=== PATIENT | female | born 1985 | race Caucasian/White ===

== ENCOUNTER 2018-09-25 18:20 | Inpatient (IN) | payer MEDICAID ==
[~2018-09-25] VITALS: Ht 177.8 cm; Wt 79.5 kg
[2018-09-25] VITALS (9 sets, daily range): BP systolic 119–151; BP diastolic 77–93; BMI 23.7
[2018-09-25 19:10] LABS: BASOPHILS 0.2 % (0-2); EOSINOPHILS 0.2 % (0-7); HEMATOCRIT 50.9 % (36.0-48.0); HEMOGLOBIN 17.8 g/dL (12-16); MCH 31.6 pg (26.0-34.0); MCV 90.2 fL (80.0-100.0); MEAN PLATELET VOLUME 11.1 fL (7.4-10.4); MONOCYTES 6.9 % (2-11); NEUTROPHILS 62.7 % (40-80); PLATELET COUNT 388 10x3/uL (130-400); RBC 5.64 10x6/uL (4.00-5.40); RDW 12.7 % (11.5-14.5); WBC 12.7 10x3/uL (4.8-10.8)
[2018-09-25 19:20] LABS: KETONE - SERUM MODERATE mg/dL (NEGATIVE)
[2018-09-25 19:28] LABS: ALBUMIN 3.9 g/dL (3.4-5.0); ALKALINE PHOSPHATASE 102 U/L (46-116); ALT (SGPT) 16 U/L (10-68); BILIRUBIN - TOTAL 0.48 mg/dL (0.2-1.3); CALC OSMOLALITY 276 mosm/kg (275-300); CALCIUM 8.5 mg/dL (8.5-10.1); CHLORIDE - SERUM 97 mmol/L (98-107); GLUCOSE 370 mg/dL (74-106); POTASSIUM - SERUM 4.5 mmol/L (3.5-5.1); PROTEIN - SERUM 8.2 g/dL (6.4-8.2); SODIUM 129 mmol/L (136-145); UREA NITROGEN 21 mg/dL (7-18); eGFR NON AFRICAN AMERICAN 67 mL/min (90-120)
[2018-09-25 19:31] LABS: CARBON DIOXIDE 3.5 mmol/L (21.0-32.0)
--- NOTE | 2018-09-25 19:35 | NUR ---
INSULIN DRIP STARTED AT 5UNITS PER HOUR PER ERP VERBAL ORDER.
[2018-09-25 19:36] LABS: MAGNESIUM - SERUM 1.9 mg/dL (1.8-2.4); PHOSPHOROUS 3.7 mg/dL (2.5-4.9)
--- NOTE | 2018-09-25 20:35 | NUR ---
FSBS - 286 ERP INFORMED
[2018-09-25 21:22] LABS: KETONE - SERUM SMALL mg/dL (NEGATIVE)
[2018-09-25 21:24] LABS: HCG SERUM NEGATIVE (NEGATIVE)
--- NOTE | 2018-09-25 21:28 | NUR ---
PT RECEIVED FROM ER. PT HAS GENERALIZED BODY RASH STATES IT IS ITCHY. PT POOR HISTORIAN BUT ANSWERS ALL QUESTIONS APPROPRIATELY. PT STATES RASH STARTED TODAY BUT HAS BEEN SICK FOR LAST 4 DAYS. [place] NO MEDSX4 DAYS. 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 ICU MONITORS IN PLACE ALARMS SET AND VERIFIED. VSS WILL CONTINUE TO MONTIOR.
--- NOTE | 2018-09-25 22:00 | NUR ---
2138 PT FSBS CHECKED. GREATER THAN 200 BLOOD SUGAR DROP FROM LAST RECHECK. PROTOCOL CALLS FOR INCREASE. NO INCREASE DUE TO DROP. Q30 MINUTE CHECK. SEE FLOW SHEET. 2200 FSBS 177. GREATER THAN 200 BLOOD SUGAR DROP FROM INITIATION. NO INCREASE WILL RECHECK IN Q1HR. DUE TO LARGE DROP. NO INCREASE. SEE FLOW SHEET.
--- NOTE | 2018-09-25 23:00 | NUR ---
REASSESSMENT DONE SEE FLOW SHEET VSS. RASH INCREASING IN GROWTH. DR RODRIGUEZ PAGED.
[2018-09-25 23:05] LABS: CALC OSMOLALITY 272 mosm/kg (275-300); CALCIUM 7.4 mg/dL (8.5-10.1); CARBON DIOXIDE 10.1 mmol/L (21.0-32.0); CHLORIDE - SERUM 106 mmol/L (98-107); CREATININE - SERUM 0.8 mg/dL (0.6-1.3); SODIUM 134 mmol/L (136-145); UREA NITROGEN 17 mg/dL (7-18); eGFR NON AFRICAN AMERICAN 87 mL/min (90-120)
[2018-09-25 23:09] LABS: GLUCOSE 156 mg/dL (74-106)
[2018-09-26] VITALS (24 sets, daily range): BP systolic 110–140; BP diastolic 68–83
[2018-09-26 04:18] LABS: BASOPHILS 0.1 % (0-2); EOSINOPHILS 0.4 % (0-7); HEMATOCRIT 44.6 % (36.0-48.0); HEMOGLOBIN 15.9 g/dL (12-16); IMMATURE GRANULOCYTES 0.5 % (0-5); LYMPHOCYTES 31.9 % (15-50); MCH 31.5 pg (26.0-34.0); MCHC 35.7 g/dL (31.0-37.0); MCV 88.3 fL (80.0-100.0); MEAN PLATELET VOLUME 10.5 fL (7.4-10.4); MONOCYTES 5.1 % (2-11); PLATELET COUNT 308 10x3/uL (130-400); RBC 5.05 10x6/uL (4.00-5.40); RDW 12.8 % (11.5-14.5); WBC 7.9 10x3/uL (4.8-10.8)
[2018-09-26 04:34] LABS: ALBUMIN 3.1 g/dL (3.4-5.0); ALKALINE PHOSPHATASE 71 U/L (46-116); ALT (SGPT) 13 U/L (10-68); BILIRUBIN - TOTAL 0.42 mg/dL (0.2-1.3); CALCIUM 7.7 mg/dL (8.5-10.1); CARBON DIOXIDE 12.4 mmol/L (21.0-32.0); CHLORIDE - SERUM 108 mmol/L (98-107); CREATININE - SERUM 0.8 mg/dL (0.6-1.3); MAGNESIUM - SERUM 1.5 mg/dL (1.8-2.4); PROTEIN - SERUM 6.3 g/dL (6.4-8.2); SODIUM 136 mmol/L (136-145); UREA NITROGEN 17 mg/dL (7-18); eGFR NON AFRICAN AMERICAN 87 mL/min (90-120)
[2018-09-26 04:35] LABS: CALC OSMOLALITY 273 mosm/kg (275-300); GLUCOSE 94 mg/dL (74-106); PHOSPHOROUS 1.6 mg/dL (2.5-4.9)
--- NOTE | 2018-09-26 05:00 | NUR ---
0100 WATER PROVIDED PER REQUEST. VSS. 0300 REASSESSMENT DONE SEE FLOW SHEET. VSS. 0500 DECREASE IN FSBS NOTED. FLUID CHANGED PER ORDER. WILL CONTINUE TO MONITOR. VSS.
--- NOTE | 2018-09-26 08:04 | NUR ---
PT AWAKE AND FOLLOWS COMMAND AND ANSWERS QUESTIONS APPROPRIATELY. DKA INSULIN PROTOCOL USED AND ADJUSTED RATE AND FLUIDS ORDERED BY PROTOCOL. BG 172 AT PRESENT. INSULIN GTT INFUSING PER PROTOCOL. SEE FLOWSHEET ON CHART.
[2018-09-26 08:58] LABS: CALCIUM 7.6 mg/dL (8.5-10.1); CARBON DIOXIDE 13.7 mmol/L (21.0-32.0); CHLORIDE - SERUM 108 mmol/L (98-107); CREATININE - SERUM 0.7 mg/dL (0.6-1.3); SODIUM 134 mmol/L (136-145); UREA NITROGEN 16 mg/dL (7-18); eGFR NON AFRICAN AMERICAN > 90 mL/min (90-120)
[2018-09-26 09:06] LABS: CALC OSMOLALITY 273 mosm/kg (275-300); GLUCOSE 196 mg/dL (74-106); POTASSIUM - SERUM 5.3 mmol/L (3.5-5.1)
--- NOTE | 2018-09-26 11:23 | NUR ---
IV INSULIN GTT FLOWSHEET REVIEWED. ADVISED TO CORRECT MULTIPLIER DUE TO PREVIOUS ERROR. SEE FLOWSHEET.
[2018-09-26 13:13] LABS: CALCIUM 7.9 mg/dL (8.5-10.1); CHLORIDE - SERUM 107 mmol/L (98-107); CREATININE - SERUM 0.7 mg/dL (0.6-1.3); MAGNESIUM - SERUM 1.8 mg/dL (1.8-2.4); SODIUM 136 mmol/L (136-145); UREA NITROGEN 13 mg/dL (7-18); eGFR NON AFRICAN AMERICAN > 90 mL/min (90-120)
[2018-09-26 13:20] LABS: CALC OSMOLALITY 272 mosm/kg (275-300); CARBON DIOXIDE 17.4 mmol/L (21.0-32.0); GLUCOSE 111 mg/dL (74-106); POTASSIUM - SERUM 3.3 mmol/L (3.5-5.1)
--- NOTE | 2018-09-26 13:56 | NUR ---
DR ACOSTA HERE. ELECTROLYTE PROTOCOL USED FOR K+ REPLACEMENT.
--- NOTE | 2018-09-26 13:57 | NUR ---
ASSISTED PT TO BATH ROOM. PT VOIDS 1200CC NERISSA URINE.
[2018-09-26 14:24] LABS: UDS - AMPHET NEGATIVE QUAL (NEGATIVE); UDS - BARB NEGATIVE QUAL (NEGATIVE); UDS - BENZO NEGATIVE QUAL (NEGATIVE); UDS - COCAINE NEGATIVE QUAL (NEGATIVE); UDS - OPIATE NEGATIVE QUAL (NEGATIVE); UDS - PCP NEGATIVE QUAL (NEGATIVE); UDS - THC NEGATIVE QUAL (NEGATIVE)
[2018-09-26 14:38] LABS: APPEARANCE CLEAR (CLEAR); BILIRUBIN NEGATIVE (NEGATIVE); COLOR YELLOW (YELLOW); GLUCOSE 1000 mg/dL (NEGATIVE); KETONE LARGE mg/dL (NEGATIVE); NITRITE NEGATIVE (NEGATIVE); PROTEIN TRACE mg/dL (NEGATIVE); SPECIFIC GRAVITY 1.025 (1.005-1.020); UROBILINOGEN NORMAL (NORMAL)
[2018-09-26 14:39] LABS: RED CELLS - URINE 0-5 /hpf (0-5); WHITE CELLS - URINE 0-5 /hpf (0-5)
[2018-09-26 14:40] LABS: BACTERIA FEW /hpf (NONE SEEN); GRANULAR CAST 0-5 /lpf (NONE SEEN)
[2018-09-26 16:36] LABS: CALC OSMOLALITY 268 mosm/kg (275-300); CALCIUM 7.8 mg/dL (8.5-10.1); CHLORIDE - SERUM 107 mmol/L (98-107); CREATININE - SERUM 0.6 mg/dL (0.6-1.3); GLUCOSE 116 mg/dL (74-106); MAGNESIUM - SERUM 1.8 mg/dL (1.8-2.4); POTASSIUM - SERUM 3.5 mmol/L (3.5-5.1); SODIUM 134 mmol/L (136-145); UREA NITROGEN 12 mg/dL (7-18); eGFR NON AFRICAN AMERICAN > 90 mL/min (90-120)
--- NOTE | 2018-09-26 17:04 | NUR ---
PT TAKING IN CL DIET WITH OUT DIFFICULTY.
--- NOTE | 2018-09-26 19:16 | NUR ---
BEDSIDE SHIFT REPORT GIVEN BY DEPARTING RN. PT LAYING IN BED ASLEEP. AAOX4. PERRLA. DENIES ANY PAIN OR NEEDS AT THIS TIME. R AND L AC PIV PATENT. VSS. TOLERATING CL LIQUID DIET. DIET COKE GIVEN PER PT REQUEST. ASSESSMENT COMPLETE. SAFETY MEASURES IN PLACE. CBIR.
--- NOTE | 2018-09-26 21:10 | NUR ---
VSS. BG CHECKED. SEE FS IN CHART
--- NOTE | 2018-09-26 23:00 | NUR ---
REASSESSMENT COMPLETE. NO CHANGES NOTED IN PT CONDITION. VSS. NO SS OF DISTRESS. SAFETY MEASURES IN PLACE. CBIR.
[2018-09-27] VITALS (18 sets, daily range): BP systolic 104–123; BP diastolic 60–77; Ht 177.8 cm; Wt 79.5 kg
[2018-09-27 00:41] LABS: CALC OSMOLALITY 264 mosm/kg (275-300); CARBON DIOXIDE 19.1 mmol/L (21.0-32.0); CHLORIDE - SERUM 107 mmol/L (98-107); CREATININE - SERUM 0.5 mg/dL (0.6-1.3); GLUCOSE 84 mg/dL (74-106); MAGNESIUM - SERUM 1.6 mg/dL (1.8-2.4); POTASSIUM - SERUM 3.9 mmol/L (3.5-5.1); SODIUM 134 mmol/L (136-145); UREA NITROGEN 7 mg/dL (7-18); eGFR NON AFRICAN AMERICAN > 90 mL/min (90-120)
--- NOTE | 2018-09-27 01:12 | NUR ---
REQUESTED SNACK. CHICKEN BROTH PROVIDED. TOLERATED WELL.
--- NOTE | 2018-09-27 03:06 | NUR ---
REASSESSMENT COMPLETE. NO NEW CHANGES IN PT CONDITION. REPOSITIONS SELF WITH EASE. NO SS OF DISTRESS. REMAINS AFEBRILE. SAFETY MEASURES IN PLACE. CBIR.
--- NOTE | 2018-09-27 05:42 | NUR ---
RESTING COMFORTABLY. NO SS OF DISTRESS. VSS. REPOSITIONS SELF. CHG BATH SET UP IN BATHROOM WITH NEW GOWN. CLEAN LINENS READY. PT REFUSES BATH AT THIS TIME, BUT WILL BATHE HERSELF WHEN SHE GOES TO THE BATHROOM NEXT. SAFETY MEASURES IN PLACE. CBIR.
[2018-09-27 06:46] LABS: ALBUMIN 2.4 g/dL (3.4-5.0); ALKALINE PHOSPHATASE 54 U/L (46-116); ALT (SGPT) 12 U/L (10-68); BILIRUBIN - TOTAL 0.26 mg/dL (0.2-1.3); CALC OSMOLALITY 271 mosm/kg (275-300); CALCIUM 7.8 mg/dL (8.5-10.1); CARBON DIOXIDE 19.1 mmol/L (21.0-32.0); CHLORIDE - SERUM 109 mmol/L (98-107); CREATININE - SERUM 0.4 mg/dL (0.6-1.3); GLUCOSE 101 mg/dL (74-106); MAGNESIUM - SERUM 1.6 mg/dL (1.8-2.4); SODIUM 137 mmol/L (136-145); UREA NITROGEN 6 mg/dL (7-18); eGFR NON AFRICAN AMERICAN > 90 mL/min (90-120)
[2018-09-27 06:52] LABS: POTASSIUM - SERUM 3.3 mmol/L (3.5-5.1)
[2018-09-27 07:00] LABS: BASOPHILS 0.4 % (0-2); EOSINOPHILS 3.3 % (0-7); HEMATOCRIT 36.5 % (36.0-48.0); HEMOGLOBIN 12.9 g/dL (12-16); IMMATURE GRANULOCYTES 0.2 % (0-5); LYMPHOCYTES 64.8 % (15-50); MCH 30.8 pg (26.0-34.0); MCHC 35.3 g/dL (31.0-37.0); MCV 87.1 fL (80.0-100.0); MEAN PLATELET VOLUME 10.5 fL (7.4-10.4); MONOCYTES 7.3 % (2-11); RBC 4.19 10x6/uL (4.00-5.40); RDW 13.1 % (11.5-14.5)
[2018-09-27 07:05] LABS: PLATELET COUNT 190 10x3/uL (130-400); WBC 4.6 10x3/uL (4.8-10.8)
--- NOTE | 2018-09-27 09:20 | NUR ---
0700 REPORT RECIEVED, PATIENT IN BED AAOX4, VITALS STABLE. RIGHT AC SL, LEFT AC INFUSING. SEE IV FLOW SHEET. SCD'S ON. 0900 PT SITTING UP IN BED, BREAKFAST TRAY IN ROOM. VITALS STABLE. PATIENT AMBULATED TO BATHROOM WITH SUPERVISION, GAVE SELF CHG BATH.
--- NOTE | 2018-09-27 09:59 | NUR ---
CALLED DR ACOSTA TO CLARIFY ORDERS AND UPDATE ON ANION GAP, ORDERS TO CHANGE TO NS, RESTART LEVIMIR AND S/S INSULIN
--- NOTE | 2018-09-27 12:47 | MORECARE ---
CASE MANAGEMENT DISCHARGE SUMMARY PATIENT: ASTER KAUR UNIT: [id number] ADM DATE: 09/25/18 AGE: 33 : [birth year] SEX: F ROOM/BED: [facility] AUTHOR: KIRSTEN NUR PHYSICIAN: REFERRING PHYSICIAN: JOSE ARMANDO CURTIS MD DATE OF SERVICE: 09/27/18 Discharge Plan Patient Name: ASTER KAUR [facility] [facility] 1985 Planned Disposition: Home Anticipated Discharge Date: Discharge Date: Expected LOS: Initial Reviewer: [email or web address] Initial Review Date: 09/27/2018 Generated: 09/27/18 1:46 pm DCPIA - Discharge Planning Initial Assessment Updated by [email or web address]: Julia Goldstein on 09/27/18 12:40 pm * Is the patient Alert and Oriented? Yes * How many steps to enter\exit or inside your home? 1-2 * PCP [facility] * Pharmacy [facility] * Preadmission Environment Home Alone * ADLs Independent * Equipment None * List name and contact numbers for known caregivers / representatives who currently or will assist patient after discharge: HEAVEN WADE - MOTHER- [phone] * Verbal permission to speak to the caregivers and representatives has been obtained from the patient. N/A * Community resources currently utilized None * Additional services required to return to the preadmission environment? No * Can the patient safely return to the preadmission environment? Yes * Has this patient been hospitalized within the prior 30 days at any hospital? No Patient Name: ASTER KAUR Page [id number] at 1247 All edits/amendments must be made on the electronic document DICTATION DATE: 09/27/18 1246 ANIMAL HUSBANDRY TEACHER: KAROLINA 09/27/18 1246 RPT#: [id number] DC DATE: STATUS: ADM IN [facility] [address] [place] [address] END OF REPORT
--- NOTE | 2018-09-27 13:03 | MORECARE ---
CASE MANAGEMENT DISCHARGE SUMMARY PATIENT: ASTER KAUR UNIT: [id number] ADM DATE: 09/25/18 AGE: 33 : 83 SEX: F ROOM/BED: [facility] AUTHOR: LIUDMILADOC PHYSICIAN: REFERRING PHYSICIAN: JOSE ARMANDO CURTIS MD DATE OF SERVICE: 09/27/18 Discharge Plan Patient Name: ASTER KAUR Facility: [facility]:[place] : 1985 Planned Disposition: Home Anticipated Discharge Date: Discharge Date: Expected LOS: Initial Reviewer: [email or web address] Initial Review Date: 09/27/2018 Generated: 09/27/18 2:03 pm Comments DCP- Discharge Planning Updated by [id number]: Julia Goldstein on 09/27/18 11:[address] Patient Name: ASTER KAUR Admission Status: ER Accout number: [id number] Admission Date: 09-25-2018 : 1985 Admission Diagnosis: Attending: JOSE ARMANDO CURTIS Current LOS: 2 Anticipated DC Date: Planned Disposition: Home Primary Insurance: [employer] PRVT OPTIONS MICHELLE Discharge Planning Comments: CM met with patient at bedside after explaining CM role and obtaining verbal consent. Patient lives at home alone and plans to return there upon discharge. Patient feels this would be a safe discharge. CM discussed availability / needs of home health and medical equipment. Patient states that she doesn't have a glucometer at home and is unable to check blood sugars. CM explained that [facility] has a glucometer for under 20 dollars and strips less than 20 dollars. Patient stated that she does have means to get one for this morrison. Patient states that she has been getting her insulin and taking it. Patient denies any discharge needs at this time. Patient states she will have her family drive her home upon discharge. CM will continue to follow and assist as needed with discharge planning / needs. Electrical Technology Instructor: Julia Goldstein DCPIA - Discharge Planning Initial Assessment Updated by [email or web address]: Julia Goldstein on 09/27/18 12:40 pm * Is the patient Alert and Oriented? Yes * How many steps to enter\exit or inside your home? 1-2 * PCP [facility] * Pharmacy [facility] * Preadmission Environment Home Alone * ADLs Independent * Equipment None * List name and contact numbers for known caregivers / representatives who currently or will assist patient after discharge: HEAVEN WADE - MOTHER- [phone] * Verbal permission to speak to the caregivers and representatives has been obtained from the patient. N/A * Community resources currently utilized None * Additional services required to return to the preadmission environment? No * Can the patient safely return to the preadmission environment? Yes * Has this patient been hospitalized within the prior 30 days at any hospital? No Last DP export: 09/27/18 11:47 a Patient Name: ASTER KAUR Page 11246 at 1303 All edits/amendments must be made on the electronic document DICTATION DATE: 09/27/18 1302 OB GYN PHYSICIAN ASSISTANT: KAROLINA 09/27/18 1302 RPT#: [id number] DC DATE: STATUS: ADM IN [facility] [address] [place] [address] END OF REPORT
[2018-09-27 13:04] LABS: CALC OSMOLALITY 272 mosm/kg (275-300); CALCIUM 7.6 mg/dL (8.5-10.1); CARBON DIOXIDE 13.9 mmol/L (21.0-32.0); CHLORIDE - SERUM 108 mmol/L (98-107); CREATININE - SERUM 0.4 mg/dL (0.6-1.3); GLUCOSE 170 mg/dL (74-106); MAGNESIUM - SERUM 1.5 mg/dL (1.8-2.4); SODIUM 136 mmol/L (136-145); UREA NITROGEN 5 mg/dL (7-18); eGFR NON AFRICAN AMERICAN > 90 mL/min (90-120)
--- NOTE | 2018-09-27 13:05 | NUR ---
DIETITION SPOKE WITH PATIENT FOR DIABETIC TEACHING
--- NOTE | 2018-09-27 16:46 | NUR ---
REPORT CALLED, WILL TRANSFER TO ROOM 1212 BY WHEELCHAIR, MOTHER NOTIFIED AND WILL MEET US DOWN THERE
--- NOTE | 2018-09-27 16:50 | NUR ---
1646-RECEIVED REPORT FROM GWEN FROM [facility].
--- NOTE | 2018-09-27 17:08 | NUR ---
1655-RECEIVED VIA WHEELCHAIR TO ROOM. POC GLUCOSE IS 198. COVERED WITH HUMULIN 4U TO RIGHT ARM. LEFT ARM WITH NS INFUSING AT 75 CC/HR, RIGHT AC PIV WITH SALINE LOCK. BILATERAL SCD'S ON AND IN USE. CALL LIGHT GIVEN TO PATIENT.
--- NOTE | 2018-09-27 17:37 | NUR ---
EATING SUPPER TRAY, MOTHER AT BEDSIDE.
--- NOTE | 2018-09-27 19:15 | NUR ---
PATIENT RESTING IN BED WITH NO S/S OF DISTRESS. BROUGHT PATIENT A DRINK PER HER REQUEST. PATIENT DENIES OTHER NEEDS AT THIS TIME. BED IN LOWEST POSITION AND CALL LIGHT WITHIN REACH. ENCOURAGED THE PATIENT TO CALL IF SHE HAS NEEDS. WILL CONTINUE TO MONITOR.
[2018-09-27 19:25] LABS: CALC OSMOLALITY 277 mosm/kg (275-300); CALCIUM 7.7 mg/dL (8.5-10.1); CARBON DIOXIDE 17.7 mmol/L (21.0-32.0); CHLORIDE - SERUM 106 mmol/L (98-107); CREATININE - SERUM 0.4 mg/dL (0.6-1.3); GLUCOSE 254 mg/dL (74-106); MAGNESIUM - SERUM 1.5 mg/dL (1.8-2.4); POTASSIUM - SERUM 4.5 mmol/L (3.5-5.1); SODIUM 136 mmol/L (136-145); UREA NITROGEN 4 mg/dL (7-18); eGFR NON AFRICAN AMERICAN > 90 mL/min (90-120)
[2018-09-28 04:00] VITALS: BP 117/69
--- NOTE | 2018-09-28 07:05 | NUR ---
LYING IN BED WITH EYES OPEN, LAB HERE FOR SCHEDULED DRAWS. NORMAL SALINE INFUSING AT 75ML/HR TO LEFT FOREARM, SALINE LOCK TO RIGHT AC. ABLE TO VOICE ALL NEEDS. WILL NOTE ANY CHANGE.
[2018-09-28 07:21] LABS: HEMATOCRIT 35.2 % (36.0-48.0); HEMOGLOBIN 12.4 g/dL (12-16); MCH 31.2 pg (26.0-34.0); MCHC 35.2 g/dL (31.0-37.0); MCV 88.7 fL (80.0-100.0); MEAN PLATELET VOLUME 10.7 fL (7.4-10.4); PLATELET COUNT 167 10x3/uL (130-400); RBC 3.97 10x6/uL (4.00-5.40); RDW 13.2 % (11.5-14.5); WBC 4.6 10x3/uL (4.8-10.8)
[2018-09-28 07:39] VITALS: BP 102/64
[2018-09-28 07:39] LABS: ALBUMIN 2.7 g/dL (3.4-5.0); ALKALINE PHOSPHATASE 56 U/L (46-116); ALT (SGPT) 12 U/L (10-68); BILIRUBIN - TOTAL 0.19 mg/dL (0.2-1.3); CALCIUM 8.1 mg/dL (8.5-10.1); CHLORIDE - SERUM 104 mmol/L (98-107); CREATININE - SERUM 0.5 mg/dL (0.6-1.3); PROTEIN - SERUM 5.3 g/dL (6.4-8.2); SODIUM 138 mmol/L (136-145); eGFR NON AFRICAN AMERICAN > 90 mL/min (90-120)
[2018-09-28 07:50] LABS: CALC OSMOLALITY 285 mosm/kg (275-300); CARBON DIOXIDE 24.1 mmol/L (21.0-32.0); GLUCOSE 306 mg/dL (74-106); POTASSIUM - SERUM 3.2 mmol/L (3.5-5.1); UREA NITROGEN 6 mg/dL (7-18)
[2018-09-28 09:37] LABS: EOSINOPHILS 1 % (0-7); LYMPHOCYTES 57 % (15-50); MONOCYTES 4 % (2-11); NEUTROPHILS 37 % (40-80); PLATELET ESTIMATE NORMAL
--- NOTE | 2018-09-28 10:34 | NUR ---
I have reviewed this patient and I concur with the Shift Assessment completed by the Licensed Practical Nurse today this shift.
[2018-09-28 11:32] VITALS: BP 114/65
--- NOTE | 2018-09-28 14:35 | NUR ---
NORMAL SALINE SWITCHED TO RIGHT AC AT THIS TIME. SALINE LOCK TO LEFT FA.
--- NOTE | 2018-09-28 15:21 | NUR ---
1443-PAGED [facility] FOR CONTINUATION OF HOME MEDS. STATES THAT SHE WILL LOOK AT THEM. 1522-RESULTS OF RE-DRAW OF POTASSIUM IS 3.6. NO NEED FOR ORAL SUPPLEMENTS AT THIS TIME.
[2018-09-28] MEDS ORDERED: NEURONTIN600 MG PO (15:32)
[2018-09-28] MEDS ORDERED: BUSPAR 15 MG TA15 MG PO (15:32)
[2018-09-28] MEDS ORDERED: EFFEXOR XR75 MG PO (15:33)
[2018-09-28] MEDS ORDERED: LEVEMIR IN100 UNITS/ SC (15:34)
[2018-09-28 15:36] VITALS: BP 107/58
--- NOTE | 2018-09-28 15:36 | NUR ---
1525-ALEX TAPIA AT [facility] I OBTAINED A LIST OF HOME MEDS. THIS WAS AFTER GETTING THE PATIENT'S PERMISSION.
--- NOTE | 2018-09-28 15:45 | NUR ---
I CALLED [facility] TO CLARIFY INSULIN ORDERS. SHE STATES THAT DR ACOSTA WANTS BOTH THE SLIDING SCALE INSULIN ALONG WITH THE 10 U AC.
--- NOTE | 2018-09-28 16:25 | NUR ---
26 U TOTAL OF HUMULIN INSULIN TO RIGHT ARM TO COVER FOR SLIDING SCALE AND AC. INSTRUCTED PATIENT TO ALTERNATE WATER WITH DIET COKES. STATES THAT DIABETIC EDUCATION WAS DONE IN THE UNIT.
--- NOTE | 2018-09-28 18:01 | NUR ---
PATIENT'S MOTHER IS CONCERNED THAT PATIENT MIGHT HAVE AN UNDERLYING CAUSE OF LUPUS AND WOULD LIKE THIS CHECKED OUT. I TOLD HER THAT I WOULD BE HAPPY TO ASK THE DOCTOR OR ASSEMBLY CLEANER TOMORROW.
--- NOTE | 2018-09-28 19:05 | NUR ---
PT IN BED. DENIES NEEDS AT THIS TIME.
[2018-09-28 20:04] VITALS: BP 107/63
[2018-09-29 00:10] VITALS: BP 116/66
[2018-09-29 04:00] VITALS: BP 104/60
[2018-09-29 06:48] LABS: BASOPHILS 0.3 % (0-2); EOSINOPHILS 1.9 % (0-7); HEMATOCRIT 32.1 % (36.0-48.0); HEMOGLOBIN 11.3 g/dL (12-16); IMMATURE GRANULOCYTES 0.2 % (0-5); LYMPHOCYTES 61.9 % (15-50); MCHC 35.2 g/dL (31.0-37.0); MCV 87.9 fL (80.0-100.0); MEAN PLATELET VOLUME 10.9 fL (7.4-10.4); MONOCYTES 7.5 % (2-11); NEUTROPHILS 28.2 % (40-80); PLATELET COUNT 196 10x3/uL (130-400); RBC 3.65 10x6/uL (4.00-5.40); RDW 13.2 % (11.5-14.5)
[2018-09-29 06:50] LABS: WBC 5.8 10x3/uL (4.8-10.8)
--- NOTE | 2018-09-29 07:04 | NUR ---
ROUNDING DONE WITH PATIENT HAVING NO NEEDS VOICED. GILMA VERDE. ON HEART MONITOR. ON ROOM AIR. GLASSES ON. RIGHT AC PIV SEEN WITH NS INFUSING AT 75 CC/HR. LEFT AC PIV SALINE LOCK. ON EP, NO LAB VALUES AT THIS TIME. WILL MONITOR.
[2018-09-29 07:26] VITALS: BP 121/75
[2018-09-29 07:33] LABS: ALBUMIN 2.6 g/dL (3.4-5.0); ALKALINE PHOSPHATASE 45 U/L (46-116); ALT (SGPT) 11 U/L (10-68); BILIRUBIN - TOTAL 0.19 mg/dL (0.2-1.3); CALCIUM 8.3 mg/dL (8.5-10.1); CARBON DIOXIDE 24.8 mmol/L (21.0-32.0); CHLORIDE - SERUM 108 mmol/L (98-107); POTASSIUM - SERUM 3.1 mmol/L (3.5-5.1); PROTEIN - SERUM 5.1 g/dL (6.4-8.2); SODIUM 143 mmol/L (136-145); UREA NITROGEN 5 mg/dL (7-18)
[2018-09-29 07:34] LABS: CALC OSMOLALITY 279 mosm/kg (275-300); CREATININE - SERUM 0.3 mg/dL (0.6-1.3); GLUCOSE 71 mg/dL (74-106); eGFR NON AFRICAN AMERICAN > 90 mL/min (90-120)
--- NOTE | 2018-09-29 07:40 | NUR ---
EP RESULTS ARE IN WITH K+ 3.1. WILL COVER WITH ORAL SUPPLEMENTS.
--- NOTE | 2018-09-29 08:33 | NUR ---
ORAL SUPPLEMENT OF POTASSIUM GIVEN.
[2018-09-29 11:27] VITALS: BP 113/63
--- NOTE | 2018-09-29 11:32 | NUR ---
POC GLUCOSE STICK IS 303. WILL GIVE 10 U INSULINE AND COVER WITH SLIDING SCALE. DENIES NEEDS.
--- NOTE | 2018-09-29 13:04 | NUR ---
FINISHED LUNCH. WATCHING TV. DENIES NEEDS.
--- NOTE | 2018-09-29 13:22 | NUR ---
POTASSIUM RE-DRAW WITH RESULTS OF 3.3, COVERED WITH ORAL SUPPLEMENTS.
--- NOTE | 2018-09-29 13:32 | NUR ---
DR ACOSTA IN TO SEE PATIENT. FOR DISCHARGE TODAY.
[2018-09-29] MEDS ORDERED: INSULIN REGULAR SC (13:36)
--- NOTE | 2018-09-29 14:20 | NUR ---
I CALLED TO MAKE A ONE WEEK FOLLOW UP APPT FOR THE PATIENT WITH DR CLARK AND HAD TO LEAVE WORD FOR THE OFFICE TO CALL THE PATIENT ON HER CELL PHONE.
--- NOTE | 2018-09-29 14:23 | MORECARE ---
CASE MANAGEMENT DISCHARGE SUMMARY PATIENT: ASTER KAUR UNIT: [id number] ADM DATE: 09/25/18 AGE: 33 : [birth year] SEX: F ROOM/BED: D.1212 AUTHOR: KIRSTEN NUR PHYSICIAN: REFERRING PHYSICIAN: JOSE ARMANDO CURTIS MD DATE OF SERVICE: 09/29/18 Discharge Plan Patient Name: ASTER KAUR Facility: [facility]:[place] : 1985 Planned Disposition: Home Anticipated Discharge Date: 09/29/18 Discharge Date: Expected LOS: 4 Initial Reviewer: [email or web address] Initial Review Date: 09/27/2018 Generated: 09/29/18 3:22 pm Comments DCP- Discharge Planning Updated by [email or web address]: Viky Scales on 09/29/18 1:[address] Patient Name: ASTER KAUR Encounter No: [id number] : 1985 Primary Insurance: [employer] PRVT OPTIONS [facility] Anticipated DC Date: 09-29-2018 Planned Disposition: Home External Planned Provider: : DCP follow-up note: Patient in agreement with discharge plan. No changes to plan. Case management will follow and assist as needed. Viky Scales DCP- Discharge Planning Updated by [id number]: Julia Goldstein on 09/27/18 11:[address] Patient Name: ASTER KAUR Admission Status: ER Accout number: [id number] Admission Date: 09-25-2018 : 1985 Admission Diagnosis: Attending: JOSE ARMANDO CURTIS Current LOS: 2 Anticipated DC Date: Planned Disposition: Home Primary Insurance: [employer] PRVT OPTIONS [facility] Discharge Planning Comments: CM met with patient at bedside after explaining CM role and obtaining verbal consent. Patient lives at home alone and plans to return there upon discharge. Patient feels this would be a safe discharge. CM discussed availability / needs of home health and medical equipment. Patient states that she doesn't have a glucometer at home and is unable to check blood sugars. CM explained that [facility] [employer] has a glucometer for under 20 dollars and strips less than 20 dollars. Patient stated that she does have means to get one for this morrison. Patient states that she has been getting her insulin and taking it. Patient denies any discharge needs at this time. Patient states she will have her family drive her home upon discharge. CM will continue to follow and assist as needed with discharge planning / needs. Analyst Market Intelligence: Julia JOY - Discharge Planning Initial Assessment Updated by [email or web address]: Julia Goldstein on 09/27/18 12:40 pm * Is the patient Alert and Oriented? Yes * How many steps to enter\exit or inside your home? 1-2 * PCP [facility] * Pharmacy [facility] * Preadmission Environment Home Alone * ADLs Independent * Equipment None * List name and contact numbers for known caregivers / representatives who currently or will assist patient after discharge: HEAVEN WADE - MOTHER- [phone] * Verbal permission to speak to the caregivers and representatives has been obtained from the patient. N/A * Community resources currently utilized None * Additional services required to return to the preadmission environment? No * Can the patient safely return to the preadmission environment? Yes * Has this patient been hospitalized within the prior 30 days at any hospital? No Last DP export: 09/27/18 12:03 p Patient Name: ASTER KAUR Page 33428 at 1423 All edits/amendments must be made on the electronic document DICTATION DATE: 09/29/181421 BACK LINE COOK: KAROLINA 09/29/181421 RPT#: [id number] PA DATE: STATUS: ADM IN [facility] [address] [place] [address] END OF REPORT
--- NOTE | 2018-09-29 14:31 | NUR ---
I TRIED TO CALL THE [facility] OF [facility] [address] AND THEY ARE HAVING TECHNICAL DIFF AND CAN NOT ACCEPT THE CALL. PER PATIENT REQUEST, I CALLED [facility] ON [address] AND SPOKE TO NERISSA, PHARMACIST.
--- NOTE | 2018-09-29 14:47 | NUR ---
VERBAL AND WRITTEN DISCHARGE INSTRUCTIONS GIVEN TO PATIENT. BILATERAL SALINE LOCKS REMOVED WITH TIPS INTACT.
--- NOTE | 2018-09-29 15:14 | NUR ---
DISCHARGED HOME VIA WHEELCHAIR WITH MOTHER.
--- NOTE | 2018-09-30 08:39 | MORECARE ---
CASE MANAGEMENT DISCHARGE SUMMARY PATIENT: ASTER KAUR UNIT: [id number] ADM DATE: 09/25/18 AGE: 33 : 83 SEX: F ROOM/BED: D.1212 AUTHOR: KIRSTEN NUR PHYSICIAN: REFERRING PHYSICIAN: JOSE ARMANDO CURTIS MD DATE OF SERVICE: 09/30/18 Discharge Plan Patient Name: ASTER KAUR Facility: [facility]:[place] : 1985 Planned Disposition: Home Anticipated Discharge Date: 09/29/18 Discharge Date: 09/29/2018 Expected LOS: 4 Initial Reviewer: [email or web address] Initial Review Date: 09/27/2018 Generated: 09/30/18 9:39 am Comments DCP- Discharge Planning Updated by [email or web address]: Viky Scales on 09/29/18 1:[address] Patient Name: ASTER KAUR Encounter No: [id number] : 1985 Primary Insurance: [employer] Anticipated DC Date: 09-29-2018 Planned Disposition: Home External Planned Provider: : DCP follow-up note: Patient in agreement with discharge plan. No changes to plan. Case management will follow and assist as needed. Viky Scales DCP- Discharge Planning Updated by [email or web address]: Julia Goldstein on 09/27/18 11:[address] Patient Name: ASTER KAUR Admission Status: ER Accout number: [id number] Admission Date: 09-25-2018 : 1985 Admission Diagnosis: Attending: JOSE ARMANDO CURTIS Current LOS: 2 Anticipated DC Date: Planned Disposition: Home Primary Insurance: [employer] Discharge Planning Comments: CM met with patient at bedside after explaining CM role and obtaining verbal consent. Patient lives at home alone and plans to return there upon discharge. Patient feels this would be a safe discharge. CM discussed availability / needs of home health and medical equipment. Patient states that she doesn't have a glucometer at home and is unable to check blood sugars. CM explained that [facility] [employer] has a glucometer for under 20 dollars and strips less than 20 dollars. Patient stated that she does have means to get one for this morrison. Patient states that she has been getting her insulin and taking it. Patient denies any discharge needs at this time. Patient states she will have her family drive her home upon discharge. CM will continue to follow and assist as needed with discharge planning / needs. Lithograph Operator: Julia JOY - Discharge Planning Initial Assessment Updated by [email or web address]: Julia Goldstein on 09/27/18 12:40 pm * Is the patient Alert and Oriented? Yes * How many steps to enter\exit or inside your home? 1-2 * PCP [facility] * Pharmacy [facility] * Preadmission Environment Home Alone * ADLs Independent * Equipment None * List name and contact numbers for known caregivers / representatives who currently or will assist patient after discharge: HEAVEN WADE - MOTHER- [phone] * Verbal permission to speak to the caregivers and representatives has been obtained from the patient. N/A * Community resources currently utilized None * Additional services required to return to the preadmission environment? No * Can the patient safely return to the preadmission environment? Yes * Has this patient been hospitalized within the prior 30 days at any hospital? No Last DP export: 09/29/18 1:23 p Patient Name: ASTER KAUR Page 11678 at 0839 All edits/amendments must be made on the electronic document DICTATION DATE: 09/30/18838 CHARTERED FINANCIAL ANALYST: KAROLINA 09/30/18838 RPT#: [id number] DC DATE:09/29/18 STATUS: DIS IN [facility] [address] [place] [address] END OF REPORT
== END 2018-09-29 15:14 | disposition home or self-care (01) | DRG 638 ==
LOC: D.ER 18:20 → D.CVICU 20:05 → D.M3 20:05
PROVIDERS: Emergency Medicine; Family Medicine; Internal Medicine Nephrology; ADMIT Family Medicine; ATTEND Family Medicine
DX: E10.10 Type 1 diabetes mellitus with ketoacidosis without coma (principal); F17.213 Nicotine dependence, cigarettes, with withdrawal; Z79.4 Long term (current) use of insulin; R00.0 Tachycardia, unspecified; E86.9 Volume depletion, unspecified; E87.6 Hypokalemia; Z91.19 Patient's noncompliance with other medical treatment and regimen

== ENCOUNTER 2018-10-27 22:54 | Emergency (ER) | payer SELFPAY ==
[~2018-10-27] VITALS: Ht 177.8 cm; Wt 77.3 kg
[~2018-10-27 22:54] MED LIST: BUSPAR 15 MG TA15 MG PO; EFFEXOR XR75 MG PO; INSULIN REGULAR SC; LEVEMIR IN100 UNITS/ SC; NEURONTIN600 MG PO
[2018-10-27 23:00] VITALS: Ht 177.8 cm; Wt 77.3 kg
[2018-10-27] MEDS ORDERED: SULFAMETHOXAZOL1 TA2 PO (23:01)
[2018-10-27] MEDS ORDERED: PROZAC10 MG PO (23:01)
[2018-10-27] MEDS ORDERED: BENADRYL50 MG PO (23:37)
[2018-10-27] MEDS ORDERED: PEPCID40 MG PO (23:37)
[2018-10-28 00:23] VITALS: BP 110/76
== END 2018-10-28 00:20 | disposition home or self-care (01) ==
LOC: D.ER 22:54
DX: L25.8 Unspecified contact dermatitis due to other agents (principal); T36.8X5A Adverse effect of other systemic antibiotics, initial encounter; K04.7 Periapical abscess without sinus; F17.210 Nicotine dependence, cigarettes, uncomplicated